=== PATIENT | male | born 1955 | race Hispanic/Latino ===

== ENCOUNTER 2021-10-14 07:47 | Inpatient (IN) | payer SELFPAY ==
[~2021-10-14] VITALS: Ht 167.6 cm; Wt 64.0 kg
[2021-10-14] VITALS (18 sets, daily range): BP systolic 81–173; BP diastolic 59–71
[2021-10-14] MEDS ORDERED: ONDANSETRON HCL INJ 2MG/ML 2ML 2 MG/ML VIAL IV STA (08:10)
[2021-10-14] MEDS ORDERED: SODIUM CHLORIDE 0.9% 1000ML 1,000 ML IV STA (08:10)
[2021-10-14 08:28] LABS: BASOPHILS % 0.6 % (0.0-1.0); EOSINOPHILS # (AUTO) 0.2 (0.0-0.4); EOSINOPHILS % 2.5 % (0.0-6.0); HEMATOCRIT 39.6 % (38.2-49.6); HEMOGLOBIN 12.6 g/dL (14.0-18.0); LYMPHOCYTES # (AUTO) 1.3 (1.0-3.2); LYMPHOCYTES % 18.6 % (18.0-39.1); MEAN CORPUSCULAR HEMOGLOBIN 26.8 pg (28-32); MEAN CORPUSCULAR HGB CONC 31.8 g/dL (31-35); MEAN CORPUSCULAR VOLUME 84.1 fL (81-99); MONOCYTES # (AUTO) 0.5 (0.2-0.8); MONOCYTES % 6.9 % (4.4-11.3); NEUTROPHILS # (AUTO) 5.1 (2.1-6.9); NEUTROPHILS % 71.3 % (38.7-80.0); PLATELET COUNT 241 x10e3/uL (140-360); RED BLOOD COUNT 4.71 x10e6/uL (4.3-5.7); RED CELL DISTRIBUTION WIDTH 13.6 % (11.7-14.4)
[2021-10-14 08:50] LABS: CLARITY,URINE SL CLOUDY (CLEAR); COLOR,URINE YELLOW (YELLOW); KETONES,URINE 2+ (NEGATIVE); LEUKOCYTE ESTERASE ,URINE NEGATIVE (NEGATIVE); NITRITE,URINE NEGATIVE (NEGATIVE); PROTEIN,URINE DIPSTICK 1+ (NEGATIVE)
[2021-10-14 08:51] LABS: URINE UROBILINOGEN 1 mg/dL (0.2 - 1)
[2021-10-14 08:55] LABS: WBC,URINE (MAN) 0-5 /HPF (0-5)
[2021-10-14 08:56] LABS: BACTERIA,URINE FEW /HPF; EPITHELIAL CELLS,URINE FEW /LPF
[2021-10-14 08:58] LABS: INR 1.01; PARTIAL THROMBOPLASTIN TIME 25.1 seconds (23.8-35.5); PROTHROMBIN TIME 14.2 seconds (11.9-14.5)
[2021-10-14 09:10] LABS: ALBUMIN 3.8 g/dL (3.5-5.0); ANION GAP 15.9 mmol/L (8-16); CALCIUM 8.7 mg/dL (8.4-10.2); CREATININE, SERUM 0.97 mg/dL (0.72-1.25); POTASSIUM 3.9 mmol/L (3.5-5.1)
[2021-10-14 09:16] LABS: CREATINE KINASE MB 1.8 ng/mL (0-5.0)
[2021-10-14 09:20] LABS: AMPHETAMINES SCREEN,URINE NEGATIVE (NEGATIVE); BENZODIAZEPINES SCREEN,URINE NEGATIVE (NEGATIVE); PHENCYCLIDINE SCREEN,URINE NEGATIVE (NEGATIVE)
[2021-10-14] MEDS ORDERED: SODIUM CHLORIDE 0.9% 1000ML 1,000 ML IV SCH (10:45)
[2021-10-14] MEDS ORDERED: Vancomycin IV 1 GM in SODIUM CHLORIDE 0.9% 250ML 250 ML IV ONE (10:45)
[2021-10-14] MEDS: FAMOTIDINE 20 MG/2 ML VIAL IV SCH ×2 (10:45→23:49)
[2021-10-14] MEDS ORDERED: CEFTRIAXONE 2 GM in SODIUM CHLORIDE 0.9% 100 ML IV ONE (10:45)
[2021-10-14] MEDS ORDERED: IOPAMIDOL 370 MG/ML 100 ML INFUS..BTL INJ ONE (11:04)
[2021-10-14] MEDS ORDERED: ONDANSETRON HCL INJ 2MG/ML 2ML 2 MG/ML VIAL IV PRN (13:15)
[2021-10-14] MEDS ORDERED: LACTATED RINGER'S 1,000 ML INJ ONE (13:30)
[2021-10-14 15:17] LABS: CREATINE KINASE MB 1.4 ng/mL (0-5.0)
[2021-10-14 21:10] LABS: CREATINE KINASE MB 1.3 ng/mL (0-5.0)
[2021-10-15] VITALS (26 sets, daily range): BP systolic 97–155; BP diastolic 54–131
[2021-10-15] MEDS: ATROPINE SULFATE 1 MG/ML VIAL IV PRN ×2 (00:55→05:27)
[2021-10-15 08:34] LABS: BASOPHILS % 0.5 % (0.0-1.0); EOSINOPHILS # (AUTO) 0.1 (0.0-0.4); EOSINOPHILS % 1.8 % (0.0-6.0); HEMATOCRIT 37.3 % (38.2-49.6); LYMPHOCYTES % 16.6 % (18.0-39.1); MEAN CORPUSCULAR HEMOGLOBIN 26.6 pg (28-32); MEAN CORPUSCULAR HGB CONC 32.2 g/dL (31-35); MEAN CORPUSCULAR VOLUME 82.7 fL (81-99); MONOCYTES # (AUTO) 0.5 (0.2-0.8); MONOCYTES % 8.4 % (4.4-11.3); NEUTROPHILS # (AUTO) 4.5 (2.1-6.9); NEUTROPHILS % 72.4 % (38.7-80.0); PLATELET COUNT 238 x10e3/uL (140-360); RED BLOOD COUNT 4.51 x10e6/uL (4.3-5.7); RED CELL DISTRIBUTION WIDTH 13.9 % (11.7-14.4)
[2021-10-15 08:56] LABS: CHOL/HDL RATIO 6.3 (3.9-4.7)
[2021-10-15 08:58] LABS: ALBUMIN 3.2 g/dL (3.5-5.0); ALBUMIN/GLOBULIN RATIO 0.9 (0.8-2.0); ANION GAP 13.8 mmol/L (8-16); CALCIUM 8.2 mg/dL (8.4-10.2); CREATININE, SERUM 0.87 mg/dL (0.72-1.25); POTASSIUM 3.8 mmol/L (3.5-5.1)
[2021-10-15] MEDS ORDERED: Vancomycin IV 1 GM in SODIUM CHLORIDE 0.9% 250ML 250 ML IV SCH (09:00)
[2021-10-15 09:06] LABS: CREATINE KINASE MB 1.3 ng/mL (0-5.0)
[2021-10-15] MEDS: FAMOTIDINE 20 MG/2 ML VIAL IV SCH ×3 (10:00→22:38)
[2021-10-15] MEDS ORDERED: ACETAMINOPHEN 325 MG TAB PO PRN ×2 (17:45→18:30)
[2021-10-16] VITALS (27 sets, daily range): BP systolic 100–162; BP diastolic 47–86
[2021-10-16] MEDS: ATROPINE SULFATE 1 MG/ML VIAL IV PRN (04:11)
[2021-10-16] MEDS: FAMOTIDINE 20 MG/2 ML VIAL IV SCH (10:46)
[2021-10-16] MEDS: FAMOTIDINE 20 MG TAB PO SCH (16:37)
[2021-10-17] VITALS (15 sets, daily range): BP systolic 100–161; BP diastolic 52–72
[2021-10-17] MEDS: FAMOTIDINE 20 MG TAB PO SCH ×2 (07:49→16:08)
[2021-10-17] MEDS ORDERED: GADOBENATE DIMEGLUMINE 1 ML IV ONE (11:45)
[2021-10-18] VITALS (15 sets, daily range): BP systolic 116–151; BP diastolic 66–118
[2021-10-18] MEDS: FAMOTIDINE 20 MG TAB PO SCH ×2 (07:45→16:42)
[2021-10-19] VITALS: BP 155/70
[2021-10-19 04:00] VITALS: BP 138/69
[2021-10-19 07:00] VITALS: BP 98/58
[2021-10-19 08:00] VITALS: BP 98/58
[2021-10-19 19:47] VITALS: BP 159/86
== END 2021-10-19 20:00 | disposition home or self-care (01) | DRG 923 ==
LOC: ER 08:10 → ERHOLD 10:41 → ICU 12:03
PROVIDERS: ADMIT Internal Medicine; ATTEND Internal Medicine
DX: T68.XXXA Hypothermia, initial encounter (principal); I49.5 Sick sinus syndrome; R41.82 Altered mental status, unspecified; Z20.822 Contact with and (suspected) exposure to COVID-19; R16.0 Hepatomegaly, not elsewhere classified; I49.8 Other specified cardiac arrhythmias; D18.09 Hemangioma of other sites; E86.0 Dehydration; X30.XXXA Exposure to excessive natural heat, initial encounter; Y93.89 Activity, other specified
CPT/HCPCS: 0223U; 36415; 51700; 70450; 71045; 74177; 74183; 80053; 80061; 80307; 80320; 80329; 81001; 82105; 82140; 82378; 82550; 82553; 83690; 83735; 83880; 84443; 84484; 85025; 85610; 85730; 87040; 87086; 93005; 93306; 94799; 99251; 99285; J0461; J0696; J2405; J2543; J3370; J7030; J7050; J7121; Q9967